=== PATIENT | male | born 1990 | race Caucasian/White ===

== ENCOUNTER 2023-06-20 16:20 | Emergency (ER) | payer MEDICAID ==
[~2023-06-20] VITALS: Ht 172.7 cm; Wt 75.0 kg
[2023-06-20 16:44] VITALS: BP 123/82; PULSE 101; RESP 18; TEMP 98.5; O2SAT 98
[2023-06-20] MEDS ORDERED: NAPR375T5 PO (17:35)
== END 2023-06-20 17:43 | disposition home or self-care (01) ==
LOC: ER 16:20
DX: D17.21 Benign lipomatous neoplasm of skin and subcutaneous tissue of right arm (principal)
CPT/HCPCS: 99282